=== PATIENT | female | born 1995 | race Caucasian/White ===

== ENCOUNTER 2018-01-02 03:28 | Emergency (ER) | payer OTHER ==
[2018-01-02] MEDS ORDERED: ONDANSETRON 4 MG (ODT) TAB ONE (03:54)
[2018-01-02] MEDS ORDERED: FAMOTIDINE 20 MG TAB ONE (03:55)
[2018-01-02 04:05] LABS: Urine Blood NEGATIVE (NEG); Urine Glucose NEGATIVE (NEG); Urine Protein NEGATIVE (NEG); Urine Specific Gravity 1.025 (1.005-1.030); Urine pH 5.5 (5.0-7.0)
--- NOTE | 2018-01-02 04:10 | EDPHYS ---
Physician Documentation [facility] Name: Lanny Salgado Age: 22 yrs Sex: Female : 1995 Arrival Date: 01/02/2018 Time: 03:29 Bed 13 Private MD: ED Physician Waylon Gold HPI: 01/02 03:58 This 22 yrs old Female presents to ER via Ambulatory with complaints of gs Abdominal Pain. 03:58 The patient presents with abdominal pain in the upper abdomen. Onset: The gs symptoms/episode began/occurred 2 day(s) ago, and became persistent. The symptoms do not radiate. Associated signs and symptoms: Pertinent positives: nausea, Pertinent negatives: chest pain, diarrhea, dysuria, vomiting. The symptoms are described as crampy. Modifying factors: The symptoms are alleviated by nothing, the symptoms are aggravated by nothing. Severity of pain: At its worst the pain was moderate in the emergency department the pain is unchanged. The patient has experienced similar episodes in the past, a few times. The patient has not recently seen a physician. 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 - Social history:: Smoking status: Patient uses tobacco products, smokes one-half pack cigarettes per day. - Ebola Screening: : No symptoms or risks identified at this time. ROS: 03:58 All other systems are negative. gs Exam: 03:58 Head/Face: Normocephalic, atraumatic. Eyes: Pupils equal round and reactive to light, gs extra-ocular motions intact. Lids and lashes normal. Conjunctiva and sclera are non-icteric and not injected. Cornea within normal limits. Periorbital areas with no swelling, redness, or edema. ENT: Nares patent. No nasal discharge, no septal abnormalities noted. Tympanic membranes are normal and external auditory canals are clear. Oropharynx with no redness, swelling, or masses, exudates, or evidence of obstruction, uvula midline. Mucous membranes moist. Neck: Trachea midline, no thyromegaly or masses palpated, and no cervical lymphadenopathy. Supple, full range of motion without nuchal rigidity, or vertebral point tenderness. No Meningismus. Chest/axilla: Normal chest wall appearance and motion. Nontender with no deformity. No lesions are appreciated. Cardiovascular: Regular rate and rhythm with a normal S1 and S2. No gallops, murmurs, or rubs. Normal PMI, no JVD. No pulse deficits. Respiratory: Lungs have equal breath sounds bilaterally, clear to auscultation and percussion. No rales, rhonchi or wheezes noted. No increased work of breathing, no retractions or nasal flaring. Back: No spinal tenderness. No costovertebral tenderness. Full range of motion. Skin: Warm, dry with normal turgor. Normal color with no rashes, no lesions, and no evidence of cellulitis. MS/ Extremity: Pulses equal, no cyanosis. Neurovascular intact. Full, normal range of motion. Neuro: Awake and alert, GCS 15, oriented to person, place, time, and situation. Cranial nerves II-XII grossly intact. Motor strength 5/5 in all extremities. Sensory grossly intact. Cerebellar exam normal. Normal gait. 03:58 Constitutional: The patient appears alert, awake. 03:58 Abdomen/GI: Palpation: mild abdominal tenderness, in the epigastric area, right upper quadrant and left upper quadrant, rebound tenderness, is not appreciated. Vital Signs: 03:37 BP 130 / 98; Pulse 73; Resp 18; Temp 98.1(O); Pulse Ox 98% on R/A; Weight 61.23 kg (R); ak1 Height 5 ft. 2 in. (157.48 cm) (R); Pain 8/10; 04:18 BP 117 / 95; Pulse 72; Resp 16; Temp 97.7(O); Pulse Ox 99% on R/A; Pain 3/10; bs1 03:37 Body Mass Index 24.69 (61.23 kg, 157.48 cm) ak1 MDM: 03:46 Patient medically screened. gs 03:58 Differential diagnosis: gastritis, non-specific abd pain, urinary tract infection. Data gs reviewed: vital signs, nurses notes. Response to treatment: the patient's symptoms have markedly improved after treatment, and as a result, I will discharge patient. 04:08 ED course: pt's exam is nonsurgical, is not vomiting is on her phone can distract to gs nontender exam will discharge. 01/02 03:47 Order name: Urine Microscopic Only 01/02 03:50 Order name: Urine Dipstick--Ancillary (enter results); Complete Time: 04:08 ny 01/02 03:47 Order name: Urine Test (obtain specimen); Complete Time: 03:51 01/02 03:50 Order name: Urine --Ancillary (enter results); Complete Time: 04:08 ny 01/02 03:47 Order name: Urine Dipstick-Ancillary (obtain specimen); Complete Time: 03:51 Administered Medications: 03:53 Drug: Pepcid 20 mg Route: PO; bs1 03:59 Follow up: Response: No adverse reaction bs1 03:54 Drug: Zofran 4 mg Route: PO; bs1 03:59 Follow up: Response: No adverse reaction bs1 Disposition: 01/02/18 04:09 Discharged to Home. Impression: Pain localized to upper abdomen. - Condition is Stable. - Discharge Instructions: Abdominal Pain, Adult. - Prescriptions for Pepcid 20 mg Oral Tablet - take 1 tablet by ORAL route every 12 hours for 10 days; 20 tablet. Zofran 4 mg Oral Tablet - take 1 tablet by ORAL route every 12 hours As needed; 6 tablet. - Medication Reconciliation Form, Thank You Letter, Antibiotic Education, Prescription Opioid Use form. - Follow up: Private Physician; When: 2 - 3 days; Reason: Re-evaluation by your physician. Signatures: Dispatcher [employer] EDMN Lilly Rogel RN RN ak1 Waylon Gold MD MD Rachel Davis RN RN bs1 Corrections: (The following items were deleted from the chart) 04:19 04:09 01/02/2018 04:09 Discharged to Home. Impression: Pain localized to upper abdomen. bs1 Condition is Stable. Forms are Medication Reconciliation Form, Thank You Letter, Antibiotic Education, Prescription Opioid Use. Follow up: Private Physician; When: 2 - 3 days; Reason: Re-evaluation by your physician.
--- NOTE | 2018-01-02 04:10 | ER ---
Nurse's Notes [facility] Name: Lanny Salgado Age: 22 yrs Sex: Female : 1995 Arrival Date: 01/02/2018 Time: 03:29 Bed 13 Private MD: Diagnosis: Pain localized to upper abdomen Presentation: 01/02 03:38 Presenting complaint: Patient states: upper abd pain X2 days. pt c/o nausea. Transition ak1 of care: patient was not received from another setting of care. Onset of symptoms was December 31, 2017. Risk Assessment: Do you want to hurt yourself or someone else? Patient reports no desire to harm self or others. Initial Sepsis Screen: Does the patient meet any 2 criteria? No. Patient's initial sepsis screen is negative. Does the patient have a suspected source of infection? No. Patient's initial sepsis screen is negative. Care prior to arrival: None. 03:38 Method Of Arrival: Ambulatory ak1 03:38 Acuity: LO 3 ak1 Triage Assessment: 03:40 General: Appears in no apparent distress. Behavior is calm, appropriate for age. 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 - Social history:: Smoking status: Patient uses tobacco products, smokes one-half pack cigarettes per day. - Ebola Screening: : No symptoms or risks identified at this time. Screenin:40 Abuse screen: Denies threats or abuse. Denies injuries from another. Nutritional ak1 screening: No deficits noted. Tuberculosis screening: No symptoms or risk factors identified. Fall Risk None identified. Assessment: 03:42 General: Appears in no apparent distress. uncomfortable, Behavior is calm, cooperative, bs1 appropriate for age. Pain: Complains of pain in right/left upper abdomen. Neuro: Level of Consciousness is awake, alert, obeys commands. Cardiovascular: Denies chest pain, shortness of breath, Heart tones S1 S2 present Capillary refill < 3 seconds Patient's skin is warm and dry. Respiratory: Airway is patent Trachea midline Breath sounds are clear bilaterally. GI: Abdomen is round non-distended, Bowel sounds present X 4 quads. Abdomen is tender to palpation in right upper quadrant and left upper quadrant. : Denies burning with urination. EENT: No signs and/or symptoms were reported regarding the EENT system. Derm: Skin is intact, Skin is pink, warm \T\ dry. normal. Musculoskeletal: Circulation, motion, and sensation intact. Capillary refill < 3 seconds, Range of motion: intact in all extremities. 04:19 Reassessment: Patient appears in no apparent distress at this time. Patient and/or bs1 family updated on plan of care and expected duration. Pain level reassessed. Patient is alert, oriented x 3, equal unlabored respirations, skin warm/dry/pink. patient states understanding of dc instructions. Vital Signs: 03:37 BP 130 / 98; Pulse 73; Resp 18; Temp 98.1(O); Pulse Ox 98% on R/A; Weight 61.23 kg (R); ak1 Height 5 ft. 2 in. (157.48 cm) (R); Pain 8/10; 04:18 BP 117 / 95; Pulse 72; Resp 16; Temp 97.7(O); Pulse Ox 99% on R/A; Pain 3/10; bs1 03:37 Body Mass Index 24.69 (61.23 kg, 157.48 cm) ak1 ED Course: 03:29 Patient arrived in ED. es 03:37 Arm band placed on Patient placed in an exam room, on a stretcher, Patient notified of ak1 wait time. 03:38 Rachel Davis RN is Primary Nurse. bs1 03:39 Triage completed. ak1 03:40 Patient has correct armband on for positive identification. Bed in low position. Call ak1 light in reach. Side rails up X 1. 03:41 Waylon Gold MD is Attending Physician. gs 04:18 No provider procedures requiring assistance completed. Patient did not have IV access bs1 during this emergency room visit. Administered Medications: 03:53 Drug: Pepcid 20 mg Route: PO; bs1 03:59 Follow up: Response: No adverse reaction bs1 03:54 Drug: Zofran 4 mg Route: PO; bs1 03:59 Follow up: Response: No adverse reaction bs1 Outcome: 04:09 Discharge ordered by . 04:18 Discharged to home ambulatory, with significant other. bs1 04:18 Condition: stable 04:18 Discharge instructions given to patient, Instructed on discharge instructions, follow up and referral plans. medication usage, Demonstrated understanding of instructions, follow-up care, medications, Prescriptions given X 2. 04:19 Patient left the ED. bs1 Signatures: Tamar Dhillon Amber RN RN ak1 Waylon Gold MD MD Rachel Davis RN RN bs1
[2018-01-02 04:25] LABS: Urine Bacteria <20 /HPF (<20); Urine Culture Reflex Order NOT NEEDED; Urine Mucus LIGHT /HPF (NONE SEEN); Urine RBC NONE SEEN /HPF (NONE SEEN)
== END 2018-01-02 04:19 | disposition home or self-care (01) ==
LOC: ER 03:28
DX: R10.10 Upper abdominal pain, unspecified (principal); F17.210 Nicotine dependence, cigarettes, uncomplicated
CPT/HCPCS: 81003; 81015; 81025; 99283

== ENCOUNTER 2020-03-11 10:24 | Emergency (ER) | payer OTHER ==
--- NOTE | 2020-03-11 10:39 | ER ---
Nurse's Notes [facility] Name: Lanny Salgado Age: 24 yrs Sex: Female : 1995 Arrival Date: 03/11/2020 Time: 10:26 Bed Waiting Private MD: Diagnosis: Assessment: 03/11 10:37 Reassessment: Attempted to call patient back form [facility]. Pt left from [facility] 5 minutes ss ago as reported by registration staff because her pain improved and no longer wanted to be seen. ED Course: 10:26 Patient arrived in ED. ds1 10:31 Abisai Dale PA is PHCP. mickey 10:31 Kaden Soares MD is Attending Physician. [facility] 10:38 Patient did not have IV access during this emergency room visit. ss Administered Medications: No medications were administered Outcome: 10:38 Eloped from waiting room, before seeing physician ss 10:39 Patient left the ED. ss Signatures: Abisai Dale PA PA jmm Sanford, Demi ds1 Dulec Padilla, JASIEL RN ss
== END 2020-03-11 10:39 | disposition left against medical advice (07) ==
LOC: ER 10:24
DX: Z02.9 Encounter for administrative examinations, unspecified (principal)

== ENCOUNTER 2022-05-29 00:54 | Emergency (ER) | payer BC, OTHER ==
--- OUTSIDE RECORDS SUMMARY | 2022-05-29 00:57 | XMS REPORT | Continuity of Care Document ---
:1995 Author Organization [facility] t Address [address] [place] [address] Care Team Providers Name Role Phone PCP, PATIENT DOES NOT HAVE A Primary Care Physician FAYE Bragg Attending Clinician Unavailable Apple Guthrie MD Attending Clinician APPLE GUTHRIE Attending Clinician Unavailable Doctor Unassigned, Brent Attending Clinician Unavailable Payers Payer Name Policy Type Policy Number Effective Date Expiration Date [id number] 2019 00:00:00 Problems Condition Condition Condition Status Onset Resolution Last Treating Co mments Source Name Details Category Date Date Treatment Clinician Date Molluscum Molluscum Disease Active Uni vers contagiosu contagiosu 4-08 it y of m m 00:00: [address] Breast Breast Disease Active Univers lesion lesion 4-08 ity of 00:00: [address] Allergies, Adverse Reactions, Alerts Allergy Allergy Status Severity Reaction(s) Onset Inactive Treating Comm ents Source Name Type Date Date Clinician NO KNOWN Drug Active Univers ALLERGIE Class ity of S [facility] Social History Social Habit Start Date Stop Date Quantity Comments Source Exposure to 2021-08-18 2021-09-17 Not sure [facility] SARS-CoV-2 00:00:00 15:40:00 [facility] Leopold Tobacco use and 2021-09-17 2021-09-17 Never used Universit y of exposure 00:00:00 00:00:[address] [facility] Alcohol intake 2021-09-17 2021-09-17 Lifetime University of 00:00:00 00:00:00 non-drinker [facility] (finding) Branch Sex Assigned At [birth year] Universit y of 00:00:00 00:00:[address] [facility] Smoking Status Start Date Stop Date Source Never smoker [facility] Medications Ordered Filled Start Stop Current Ordering Indication Dosage Frequency Signature Comments Components Source Medication Medication Date Date Medication? Clinician (SIG) Name Name podofilox 2021-0 Yes [id number] Apply to Univers 0.5 % 4-15 area(s) 2 ity of solution 00:00: (two) [place] 00 times Medical daily. Branch podofilox 2-0 Yes [id number] Apply to Univers 0.5 % 4-15 area(s) 2 ity of solution 00:00: (two) [place] 00 times Medical daily. Branch podofilox 2-0 Yes [id number] Apply to Univers 0.5 % gel 4-08 area(s) 2 ity o f 00:00: (two) [place] 00 times Medical daily. Use Branch twice daily until it goes away. podofilox 2-0 Yes [id number] Apply to Univers 0.5 % gel 4-08 area(s) 2 ity o f 00:00: (two) [place] 00 times Medical daily. Use Branch twice daily until it goes away. podofilox 2-0 Yes [id number] Apply to Univers 0.5 % gel 4-08 area(s) 2 ity o f 00:00: (two) [place] 00 times Medical daily. Use Branch twice daily until it goes away. Immunizations Ordered Filled Immunization Date Status Comments [facility] e Immunization Name Name Td 2018-09-04 Completed [facility] 00:00:[address] [facility] Td 2018-09-04 Completed [facility] :00:[address] [facility] Td 2018-09-04 Completed [facility] 00:00:[address] [facility] Vital Signs Vital Name Observation Time Observation Value Comments Source Systolic blood 2021-09-17 20:59:00 118 mm[Hg] Univer sity of [facility] Diastolic blood 2021-09-17 20:59:00 80 mm[Hg] Unive rsity of pressure [facility] Heart rate 2021-09-17 20:59:00 80 /min Universi ty [facility] Body temperature 2021-09-17 20:59:00 36.83 Latrice [facility] Respiratory rate 2021-09-17 20:59:00 18 /min [facility] Body height 2021-09-17 20:59:00 160 cm [facility] Body weight 2021-09-17 20:59:00 69.763 kg [facility] BMI 2021-09-17 20:59:00 27.24 kg/m2 [facility] Procedures This patient has no known procedures. Encounters Start End Encounter Admission Attending Care Care Encounter Source Date/Time Date/Time Type Type Clinicians Facility Department ID 2022-03-31 2022-03-31 Outpatient R MARKIE [facility] [id number] Univers 11:00:00 11:00:00 FAYE chaz [facility] 2021-10-05 2021-10-05 Telephone DevinDanin [facility] [id number] Univers 00:00:00 00:00:00 AISHWARYATON [id number] i [id number] [id number] Ut dical NAL [address] [place] [address] 2021-09-23 2021-09-23 Telephone DevinDanin [facility] [id number] Univers 00:00:00 00:00:00 MARIALUISA [id number] it [id number] [id number] [address] 2021-09-17 2021-09-17 Outpatient R APPLE GUTHRIE [facility] [id number] Univers 15:30:00 16:49:54 ity [facility] 2021-09-17 2021-09-17 Office DevinDanin [facility] [id number] Univers 15:30:00 16:49:54 Visit KATIE [id number] i ty [facility] [id number] [id number] Ut dical NAL [address] [place] [address] 2021-09-17 2021-09-17 Outpatient R APPLE GUTHRIE [facility] [id number] Univers 15:30:00 16:49:[address] [facility] 2021-09-17 2021-09-17 Orders Doctor JAVIER [id number] Univers 00:00:00 00:00:00 Only Unassigned, CARMITA [id number] ity of Brent [facility] [id number] Guillaume as [phone] [place] [address] Branch Results This patient has no known results.
[2022-05-29] MEDS ORDERED: NA CHLORIDE 0.9% 1,000 ML ONE (01:24)
[2022-05-29 01:57] LABS: Absolute Lymphocytes (CBC) 2.8 K/uL (0.7-4.9); Hematocrit 39.5 % (36.0-45.0); Lymphocytes % 32.9 % (15.3-44.8); MCV 85.8 fL (80-100); MPV 9.2 fL (7.6-11.3)
[2022-05-29] MEDS ORDERED: ONDANSETRON 4 MG/2 ML VIAL ONE (02:25)
[2022-05-29 02:27] LABS: Potassium 3.8 mmol/L (3.5-5.1)
--- NOTE | 2022-05-29 02:53 | EDPHYS ---
Physician Documentation [facility] Name: Lanny Salgado Age: 26 yrs Sex: Female : 1995 Arrival Date: 05/29/2022 Time: 01:05 Bed 6 Private MD: PARAG Physician Eusebio Cancino HPI: 05/29 01:59 This 26 yrs old Female presents to ER via Ambulatory with complaints of funmilayo Vaginal Bleeding, + Preg <12wks. 01:59 The patient presents to the emergency department with vaginal bleeding, that is funmilayo moderate. The estimated gestational age is 8 weeks. course: care: at a clinic. Previous pregnancies: the patient has never been . Associated signs and symptoms: The patient has no apparent associated signs or symptoms. The patient has not experienced similar symptoms in the past. 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 - Social history:: Smoking status: Patient denies any tobacco usage or history of. ROS: 02:01 Constitutional: Negative for fever, chills, and weight loss, Eyes: Negative for injury, funmilayo pain, redness, and discharge, ENT: Negative for injury, pain, and discharge, Neck: Negative for injury, pain, and swelling, Cardiovascular: Negative for chest pain, palpitations, and edema, Respiratory: Negative for shortness of breath, cough, wheezing, and pleuritic chest pain, Abdomen/GI: Negative for abdominal pain, nausea, vomiting, diarrhea, and constipation, Back: Negative for injury and pain, MS/Extremity: Negative for injury and deformity, Skin: Negative for injury, rash, and discoloration, Neuro: Negative for headache, weakness, numbness, tingling, and seizure, Psych: Negative for depression, anxiety, suicide ideation, homicidal ideation, and hallucinations, Allergy/Immunology: Negative for hives, rash, and allergies, Endocrine: Negative for neck swelling, polydipsia, polyuria, polyphagia, and marked weight changes. 02:01 : Positive for pelvic pain. Exam: 02:01 Constitutional: This is a well developed, well nourished patient who is awake, alert, funmilayo and in no acute distress. Head/Face: Normocephalic, atraumatic. Eyes: Pupils equal round and reactive to light, extra-ocular motions intact. Lids and lashes normal. Conjunctiva and sclera are non-icteric and not injected. Cornea within normal limits. Periorbital areas with no swelling, redness, or edema. ENT: Nares patent. No nasal discharge, no septal abnormalities noted. Tympanic membranes are normal and external auditory canals are clear. Oropharynx with no redness, swelling, or masses, exudates, or evidence of obstruction, uvula midline. Mucous membranes moist. Neck: Trachea midline, no thyromegaly or masses palpated, and no cervical lymphadenopathy. Supple, full range of motion without nuchal rigidity, or vertebral point tenderness. No Meningismus. Chest/axilla: Normal chest wall appearance and motion. Nontender with no deformity. No lesions are appreciated. Cardiovascular: Regular rate and rhythm with a normal S1 and S2. No gallops, murmurs, or rubs. Normal PMI, no JVD. No pulse deficits. Respiratory: Lungs have equal breath sounds bilaterally, clear to auscultation and percussion. No rales, rhonchi or wheezes noted. No increased work of breathing, no retractions or nasal flaring. Abdomen/GI: Soft, non-tender, with normal bowel sounds. No distension or tympany. No guarding or rebound. No evidence of tenderness throughout. Back: No spinal tenderness. No costovertebral tenderness. Full range of motion. Skin: Warm, dry with normal turgor. Normal color with no rashes, no lesions, and no evidence of cellulitis. MS/ Extremity: Pulses equal, no cyanosis. Neurovascular intact. Full, normal range of motion. Neuro: Awake and alert, GCS 15, oriented to person, place, time, and situation. Cranial nerves II-XII grossly intact. Motor strength 5/5 in all extremities. Sensory grossly intact. Cerebellar exam normal. Normal gait. Psych: Awake, alert, with orientation to person, place and time. Behavior, mood, and affect are within normal limits. 02:01 Musculoskeletal/extremity: DVT Exam: No signs of deep vein thrombosis. no pain, no swelling, no tenderness, negative Homans' sign noted on exam, no appreciated bluish discoloration, no erythema, no increased warmth. Vital Signs: 01:34 Weight 66.22 kg; Height 5 ft. 2 in. (157.48 cm); vc1 02:15 BP 106 / 80; Pulse 78; Resp 20 S; Pulse Ox 100% on R/A; aa9 03:01 BP 117 / 70; Pulse 87; Resp 19 S; Pulse Ox 99% on R/A; ll3 01:34 Body Mass Index 26.70 (66.22 kg, 157.48 cm) vc1 MDM: 01:07 Patient medically screened. funmilayo 01:13 Patient medically screened. funmilayo 02:52 Differential diagnosis: menorrhea, threatened Ab, nonspecific abdominal pain, ovarian funmilayo cyst, placenta previa, postcoital bleeding. Data reviewed: vital signs, nurses notes, lab test result(s), radiologic studies, ultrasound. 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 rate is 78 beats/min, rhythm is regular, Pulse oximetry: on room air is 100 %. Counseling: I had a detailed discussion with the patient and/or guardian regarding: the historical points, exam findings, and any diagnostic results supporting the discharge/admit diagnosis, lab results, radiology results, the need for outpatient follow up, for definitive care, an OB/Gyne specialist. 05/29 01:08 Order name: Abo/rh Typing; Complete Time: 02:[address] [facility] 05/29 01:08 Order name: Basic Metabolic Panel; Complete Time: 02:[address] [facility] 05/29 01:08 Order name: CBC with Diff; Complete Time: 02:[address] [facility] 05/29 01:08 Order name: Quantitative Hcg; Complete Time: 02:[address] [facility] 05/29 02:59 Order name: Urine Dipstick-Ancillary EDMS 05/29 01:08 Order name: US Transvaginal Ob [facility] 05/29 01:08 Order name: IV Saline Lock; Complete Time: 01:[address] [facility] 05/29 01:08 Order name: Labs collected and sent; Complete Time: 01:[address] [facility] 05/29 01:08 Order name: NPO; Complete Time: 01:[address] [facility] 05/29 01:08 Order name: Urine Dipstick-Ancillary (obtain specimen); Complete Time: 03:[address] [facility] 05/29 03:02 Order name: Urine --Ancillary (enter results) 05/29 01:08 Order name: Urine Test (obtain specimen); Complete Time: 03:00 funmilayo Administered Medications: 01:38 Drug: NS 0.9% 1000 ml Route: IV; Rate: 1 bolus; Site: left antecubital; aa9 02:32 Drug: Zofran (Ondansetron) 4 mg Route: IVP; Site: left antecubital; aa9 Point of Care Testing: Urine : 03:00 hCG Reading: Positive; Control Reading: Positive; vc1 Disposition Summary: 05/29/22 02:53 Discharge Ordered Location: Home [facility] Problem: new funmilayo Symptoms: have improved funmilayo Condition: Stable funmilayo Diagnosis - Threatened funmilayo - Nausea funmilayo Followup: funmilayo - With: Private Physician - When: - Reason: Recheck today's complaints, Continuance of care, Re-evaluation by your physician Followup: funmilayo - With: - When: 2 - 3 days - Reason: Recheck today's complaints, Re-evaluation by your physician Discharge Instructions: - Discharge Summary Sheet funmilayo - Nausea and Vomiting, Adult funmilayo - Care funmilayo - Threatened Miscarriage funmilayo - Vaginal Bleeding During , First Trimester funmilayo - First Trimester of , [id number] funmilayo - First Trimester of funmilayo - Threatened Miscarriage, [id number] funmilayo - Vaginal Bleeding During , First Trimester, [id number] [facility] Forms: - Medication Reconciliation Form [facility] - Thank You Letter funmilayo - Antibiotic Education funmilayo - Prescription Opioid Use [facility] Prescriptions: - Zofran 4 mg Oral Tablet - take 1 tablet by ORAL route every 12 hours As needed; 20 tablet; Refills: 0, funmilayo Product Selection Permitted Signatures: Dispatcher [employer] EDMS Eusebio Cancino MD MD cha Calcote, Vanessa RN RN vc1 María Elena Fishman RN RN aa9 Corrections: (The following items were deleted from the chart) 03:03 03:01 URIC ACID+C.LAB.BRZ ordered. EDMS EDMS
--- NOTE | 2022-05-29 02:53 | ER ---
Nurse's Notes [facility] Name: Lanny Salgado Age: 26 yrs Sex: Female : 1995 Arrival Date: 05/29/2022 Time: 01:05 Bed 6 Private MD: Diagnosis: Threatened ;Nausea Presentation: 05/29 01:34 Chief complaint: Patient states: "I'm 8 wks and I woke up bleeding.". vc1 Coronavirus screen: Vaccine status: Patient reports being unvaccinated. Ebola Screen: No symptoms or risks identified at this time. Risk Assessment: Do you want to hurt yourself or someone else? Patient reports no desire to harm self or others. Onset of symptoms was May 29, 2022 at 00:30. 01:34 Method Of Arrival: Ambulatory vc1 01:34 Acuity: LO 4 vc1 01:39 Initial Sepsis Screen: Does the patient meet any 2 criteria? No. Patient's initial vc1 sepsis screen is negative. Does the patient have a suspected source of infection? No. Patient's initial sepsis screen is negative. Triage Assessment: 01:36 General: Appears in no apparent distress. Behavior is calm, cooperative, appropriate vc1 for age. Pain: Denies pain. EENT: No deficits noted. Neuro: Level of Consciousness is awake, alert, obeys commands, Oriented to person, place, time, situation, Appropriate for age. Cardiovascular: Capillary refill < 3 seconds Patient's skin is warm and dry. Respiratory: Airway is patent Respiratory effort is even, unlabored, Respiratory pattern is regular, symmetrical. GI: No deficits noted. No signs and/or symptoms were reported involving the gastrointestinal system. : Reports vaginal bleeding that is heavy flow dark red. Derm: No deficits noted. Musculoskeletal: No deficits noted. 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 - Social history:: Smoking status: Patient denies any tobacco usage or history of. Screenin:37 Abuse screen: Denies threats or abuse. Nutritional screening: No deficits noted. vc1 Tuberculosis screening: No symptoms or risk factors identified. Fall Risk No fall in past 12 months (0 pts). 03:08 [facility] ED Fall Risk Assessment (Adult) History of falling in the last 3 months, aa9 including since admission No falls in past 3 months (0 pts) Confusion or Disorientation No (0 pts) Intoxicated or Sedated No (0 pts) Impaired Gait No (0 pts) Mobility Assist Device Used No (0 pt) Altered Elimination No (0 pt) Score/Fall Risk Level 0 - 2 = Low Risk. Humpty Dumpty Scale Fall Assessment Tool (age< 18yrs) Age 13 years and above (1 pt) Gender Female (1 pt) Diagnosis Other diagnosis (1 pt) Cognitive Impairments Oriented to own ability (1 pt) Environmental Factors Outpatient area (1 pt) Response to Surgery/Sedation/Anesthesia More than 48 hours/ None (1 pt) Medication Usage Other medications/ None (1 pt) Fall Risk Score/ Level Low Fall Risk: </= 11 points Oriented to surroundings. Assessment: 01:39 Obstetrical Assessment: pt early in . vc1 02:02 General: Appears in no apparent distress. comfortable, slender, Behavior is aa9 cooperative, appropriate for age, anxious. Pain: Complains of pain in low back area and abdomen Pain currently is 4 out of 10 on a pain scale. Quality of pain is described as crampy. Neuro: Level of Consciousness is awake, alert, obeys commands, Oriented to person, place, time, situation. Cardiovascular: Capillary refill < 3 seconds Patient's skin is warm and dry. Respiratory: Airway is patent Respiratory effort is even, unlabored. GI: No signs and/or symptoms were reported involving the gastrointestinal system. : Reports vaginal bleeding that is bright red. Derm: Skin is intact, is healthy with good turgor. 03:01 Reassessment: Patient appears in no apparent distress at this time. Patient is alert, ll3 oriented x 3, equal unlabored respirations, skin warm/dry/pink. Vital Signs: 01:34 Weight 66.22 kg; Height 5 ft. 2 in. (157.48 cm); vc1 02:15 BP 106 / 80; Pulse 78; Resp 20 S; Pulse Ox 100% on R/A; aa9 03:01 BP 117 / 70; Pulse 87; Resp 19 S; Pulse Ox 99% on R/A; ll3 01:34 Body Mass Index 26.70 (66.22 kg, 157.48 cm) vc1 Vitals: 01:38 Heart Tones Too early in . vc1 ED Course: 01:05 Patient arrived in ED. ja2 01:07 Eusebio Cancino MD is Attending Physician. funmilayo 01:23 María Elena Fishman, JASIEL is Primary Nurse. aa9 01:35 Triage completed. vc1 01:36 Inserted saline lock: 20 gauge in left antecubital area, using aseptic technique. Blood aa9 collected. 01:38 Abo/rh Typing Sent. aa9 01:38 Basic Metabolic Panel Sent. aa9 01:38 CBC with Diff Sent. aa9 01:38 Quantitative Hcg Sent. aa9 02:01 Arm band placed on. aa9 02:02 No provider procedures requiring assistance completed. aa9 02:02 Patient has correct armband on for positive identification. Bed in low position. Call aa9 light in reach. Side rails up X2. Adult w/ patient. 02:25 US Transvaginal Ob In Process Unspecified. EDMS 02:53 Anupam Posadas MD is Referral Physician[facility] 03:08 IV discontinued, intact, bleeding controlled, No redness/swelling at site. Pressure aa9 dressing applied. Administered Medications: 01:38 Drug: NS 0.9% 1000 ml Route: IV; Rate: 1 bolus; Site: left antecubital; aa9 02:32 Drug: Zofran (Ondansetron) 4 mg Route: IVP; Site: left antecubital; aa9 Medication: 02:04 VIS not applicable for this client. aa9 Point of Care Testing: Urine : 03:00 hCG Reading: Positive; Control Reading: Positive; vc1 Outcome: 02:53 [facility]charge [facility] by [facility] 03:08 Discharged to home ambulatory, with family. aa9 03:08 Condition: stable 03:08 Discharge instructions given to patient, Instructed on discharge instructions, follow up and referral plans. medication usage, Demonstrated understanding of instructions, follow-up care, medications, Prescriptions given X 1. 03:08 Patient left the ED. aa9 Signatures: Dispatcher [employer] EDEusebio Garza MD MD cha Alexander, Jessica ja2 Loubet, Lynsea RN RN ll3 Madai Fermin RN RN vc1 María Elena Fishman RN RN aa9
[2022-05-29 02:59] LABS: Urine Blood Trace-intact (Negative); Urine Glucose Negative (Negative); Urine Protein Negative (Negative); Urine Specific Gravity 1.015 (1.005-1.030); Urine pH 6.5 (5.0-7.0)
[2022-05-29 03:14] LABS: Urine Specific Gravity/Preg 1.015 (1.005-1.030)
[2022-05-29 03:27] VITALS: BP 117/70; O2SAT 99
--- NOTE | 2022-05-30 12:01 | RAD REPORT ---
EXAM DESCRIPTION: US - Transvaginal OB - 05/29/2022 2:24 am CLINICAL HISTORY: ABD CRAMPING, TECHNIQUE: Real-time transabdominal and transvaginal obstetrical ultrasound of the maternal pelvis a nd a first trimester with image documentation. Transvaginal imaging was used for better e valuation of the fetus and adnexa. COMPARISON: No relevant prior studies available. FINDINGS: Gestation: Single intrauterine gestational sac. Mean sac diameter measures 18 mm corre sponding to an estimated gestational age of 6 weeks 5 days. The crown-rump length measures 5.3 mm c orresponding to an estimated gestational age of 7 weeks 0 days. There is a small yolk sac. cardiac activity measures 125 BPM. Placenta/amniotic fluid: Cannot be adequately evaluated due to the early gestational age. Uterus/cervix: The uterus is anteverted and measures 8.9 x 5 x 5.8 cm. No myometrial mass. Ovaries: Right and left ovarian measurements are 3.5 x 2.1 x 2.1 cm and 2.7 x 2.2 x 1.7 cm, respect ively. No mass. Free fluid: No free fluid. IMPRESSION: 1. Single live intrauterine gestation. 2. Estimated gestational age by ultrasound is 7 weeks 0 days. 3. Estimated due date by ultrasound is 01/15/2023. Electronically signed by: Nick Blankenship MD 05/29/2022 2:43 AM DIRECTOR OF HOUSING AND ENERGY SERVICES Due to temporary technical issues with the PACS/Fluency reporting system, reports are being signed by the in house radiologists without review as a courtesy to insure prompt reporting. The interpreting radiologist is fully responsible for the content of the report.
== END 2022-05-29 03:08 | disposition home or self-care (01) ==
LOC: ER 00:54
DX: O20.0 Threatened abortion (principal); O26.891 Other specified pregnancy related conditions, first trimester; Z3A.01 Less than 8 weeks gestation of pregnancy
CPT/HCPCS: 85025; 80048; 36415; 86900; 81025; 86901; 84702; 81003; 76817; 96374; 99284; J7030; J2405

== ENCOUNTER 2022-11-02 13:37 | Emergency (ER) | payer OTHER ==
--- OUTSIDE RECORDS SUMMARY | 2022-11-02 13:42 | XMS REPORT | Continuity of Care Document ---
:1995 Author Organization [facility] t Address [address] [facility]. [address] [place] [address] Care Team Providers Name Role Phone PCP, PATIENT DOES NOT HAVE A Primary Care Physician Unavaila FAYE Reed Attending Clinician Unavailable COREY MG Attending Clinician Unavailable Corey Mg MD Attending Clinician 2, Adc Lab Attending Clinician Unavailable Denis Pace Attending Clinician Unavailable Gm Guthrie MD Attending Clinician GM GUTHRIE Attending Clinician Unavailable Doctor Unassigned, [place] Attending Clinician Unavailable Denis Pace Admitting Clinician Unavailable Payers Payer Name Policy Type Policy Number Effective Date Expiration Date S ource [facility] [id number] 2019 00:00:00 [place] [employer] [id number] 2022 00:00:00 Problems Condition Condition Condition Status Onset Resolution Last Treating Co mments Source Name Details Category Date Date Treatment Clinician Date Obesity Obesity Disease Active Univers (BMI (BMI - ity of 30-39.9) 30-39.9) 00:00: [address] Obesity in Obesity in Disease Active U nivers 10-10 ity of 00:00: [address] Uterine Uterine Disease Active Univers size-date size-date 10-10 [place]y [place] Medical second second Branch trimester trimester High-risk High-risk Disease Active Uni vers 5-01 ity of in third in third 00:00: [place] trimester trimester 00 Medi sanaz Branch Molluscum Molluscum Disease Active Uni vers contagiosu contagiosu 4-08 it y of m m 00:00: [address] Breast Breast Disease Active Univers lesion lesion 08 ity of 00:00: [address] Allergies, Adverse Reactions, Alerts Allergy Allergy Status Severity Reaction(s) Onset Inactive Treating Comm ents Source Name Type Date Date Clinician NO KNOWN Drug Active Univers ALLERGIE Class ity of S [facility] Social History Social Habit Start Date Stop Date Quantity Comments Source ASSERTION 2022-04-22 University 00:00:00 [facility] Exposure to 2022-10-17 2022-10-27 Not sure [facility] SARS-CoV-2 00:00:00 10:57:00 [facility] (event) [place] Alcohol intake 2022-10-27 2022-10-27 Lifetime University 00:00:00 00:00:00 non-drinker [facility] (finding) [place] Tobacco use and 2022-10-10 2022-10-10 Smokeless tobacco Un iversity of exposure 00:00:00 00:00:00 non-user [facility] Sex Ass[birth year] Universit y of 00:00:00 00:00:00 [facility] Smoking Status Start Date Stop Date Source Never smoked tobacco [facility] Medications Ordered Filled Start Stop Current Ordering Indication Dosage Frequency Signature Comments Components Source Medication Medication Date Date Medication? Clinician (SIG) Name Name PNV Yes Take by Univers no.95/samantha 5-01 mouth. ity of us 14:29: [place] fum/folic 33 Medical ac Branch ( ORAL) PNV Yes Take by Univers no.95/samantha 5-01 mouth. ity of us 14:29: [place] fum/folic 33 Medical ac Branch ( ORAL) PNV Yes Take by Univers no.95/samantha 5-01 mouth. ity of us 14:29: [place] fum/folic 33 Medical ac Branch ( ORAL) podofilox Yes [id number] Apply to Univers 0.5 % 4-15 area(s) 2 ity of solution 00:00: (two) [place] 00 times Medical daily. Branch podofilox 2-0 Yes [id number] Apply to Univers 0.5 % 4-15 area(s) 2 ity of solution 00:00: (two) [place] 00 times Medical daily. Branch podofilox 2-0 3- No [id number] Apply to Univers 0.5 % 4-15 05-01 area(s) 2 ity of solution 00:00: 00:00 (two) [place] 00 :00 times Medical daily. Branch podofilox 2-0 Yes [id number] Apply to Univers 0.5 % gel 4-08 area(s) 2 ity o f 00:00: (two) [place] 00 times Medical daily. Use Branch twice daily until it goes away. podofilox 2-0 Yes [id number] Apply to Univers 0.5 % gel 4-08 area(s) 2 ity o f 00:00: (two) [place] 00 times Medical daily. Use Branch twice daily until it goes away. podofilox 2-0 Yes [id number] Apply to Univers 0.5 % gel 4-08 area(s) 2 ity o f 00:00: (two) [place] 00 times Medical daily. Use Branch twice daily until it goes away. podofilox 2-0 3- No [id number] Apply to Univers 0.5 % gel 4-08 05-01 area(s) 2 ity of 00:00: 00:00 (two) [place] 00 :00 times Medical daily. Use Branch twice daily until it goes away. Immunizations Ordered Filled Immunization Date Status Comments [facility] e Immunization Name Name TDAP 2022-10-27 Completed University of 00:00:00 [facility] TD, NOS 2018-09-04 Completed University of 00:00:00 [facility] Td 2018-09-04 Completed University of 00:00:00 [facility] Td 2018-09-04 Completed University of 00:00:00 [facility] Td 2018-09-04 Completed University of 00:00:00 [facility] TD, NOS 2018-09-04 Completed of 00:00:00 [facility] TD, NOS 2018-09-04 Completed 00:00:00 [facility] Vital Signs Vital Name Observation Time Observation Value Comments Source Systolic blood 2022-10-27 16:04:00 111 mm[Hg] Univer sity of pressure [place] [facility] Diastolic blood 2022-10-27 16:04:00 76 mm[Hg] Unive rsity of pressure [place] [facility] Heart rate 2022-10-27 16:04:00 89 /min Universi ty [facility] [place] [facility] Body temperature 2022-10-27 16:04:00 37.06 Latrice Univ ersity of [place] [facility] Body height 2022-10-27 16:04:00 157.5 cm Universi ty [facility] [place] [facility] Body weight 2022-10-27 16:04:00 77.384 kg [facility] [place] [facility] BMI 2022-10-27 16:04:00 31.20 kg/m2 [facility] ty [facility] [place] [facility] Systolic blood 2022-10-10 19:23:00 112 mm[Hg] Univer sity of pressure [place] [facility] Diastolic blood 2022-10-10 19:23:00 79 mm[Hg] Unive rsity of pressure [place] [facility] Heart rate 2022-10-10 19:23:00 76 /min [facility] [place] [facility] Body temperature 2022-10-10 19:23:00 36.83 Latrice Univ ers[facility] [place] [facility] Body height 2022-10-10 19:23:00 157.5 cm [facility] [place] [facility] Body weight 2022-10-10 19:23:00 76.204 kg [facility] [place] [facility] BMI 2022-10-10 19:23:00 30.73 kg/m2 [facility] [place] [facility] Body weight 2021-09-17 20:59:00 69.763 kg [facility] [place] [facility] BMI 2021-09-17 20:59:00 27.24 kg/m2 [facility] [place] [facility] Systolic blood 2021-09-17 20:59:00 118 mm[Hg] Univer sity of pressure [place] [facility] Diastolic blood 2021-09-17 20:59:00 80 mm[Hg] Unive rsity of pressure [place] [facility] Heart rate 2021-09-17 20:59:00 80 /min [facility] [place] [facility] Body temperature 2021-09-17 20:59:00 36.83 Latrice Univ [facility] [place] [facility] Respiratory rate 2021-09-17 20:59:00 18 /min [facility] Body height 2021-09-17 20:59:00 160 cm [facility] Procedures Procedure Date / Time Performed Performing Clinician Sourcinthya e TDAP VACCINE, >11 YRS, 2022-10-27 16:05:21 Corey Mg [facility] POCT URINALYSIS W/O 2022-10-27 00:00:00 Corey Mg [facility] SPECIFIC GRAVITY [facility] POCT URINALYSIS W/O 2022-10-10 00:00:00 Corey Mg [facility] SPECIFIC GRAVITY [facility] Encounters Start End Encounter Admission Attending Care Care Encounter Source Date/Time Date/Time Type Type Clinicians Facility Department ID 2022-11-09 2022-11-09 Outpatient R MARKIE [facility] [id number] Univers 09:30:00 09:30:[facility] 2022-10-27 2022-10-27 Outpatient R COREY MG [facility] [id number] Univers 11:00:00 11:19:23 ity of [facility] 2022-10-27 2022-10-27 Routine Corey Mg [place] [id number] Univers 11:00:00 11:19:23 Fermín WILSON [id number] ity of [id number] [id number] Sd dical NAL 134 [facility] 2022-10-11 2022-10-11 Optometric Technician 2, Adc Lab RUST [id number] Univers 13:00:00 13:15:00 Visit Alfredo Coreypaul WILSON [id number] ity of [place] [id number] Sd dical NAL 353 [facility] 2022-10-11 2022-10-11 Outpatient R COREY MG [facility] [id number] Univers 13:00:00 13:00:[address] [facility] 2022-10-10 2022-10-10 Initial Corey Mg [place] [id number] Univers 14:00:00 14:30:00 Cam KATIE [id number] ity of [place] [id number] [address] 2022-10-10 2022-10-10 Outpatient R COREY MG [facility] [id number] Univers 14:00:00 14:00:00 ity of [facility] 2022-09-05 2022-09-05 Outpatient JULITO Pace [facility] [id number] [facility] 10:48:00 10:48:00 Beilan [facility] [place] 2022-07-25 2022-07-25 Outpatient Sanjeev [facility] [id number] [facility] 13:13:00 13:13:00 Beilan [facility] 2022-03-31 2022-03-31 Outpatient R MARKIE [facility] [id number] Univers 11:00:00 11:00:[address] [facility] 2021-10-05 2021-10-05 Telephone Gm Guthrie [place] [id number] Univers 00:00:00 00:00:00 KATIE [id number] i ty [place] [id number] [address] 2021-09-23 2021-09-23 Telephone Gm Guthrie [facility] [id number] Univers 00:00:00 00:00:00 MARIALUISA [id number] it y of [place] [id number] [address] 2021-09-17 2021-09-17 Outpatient R GM GUTHRIE [facility] [id number] Univers 15:30:00 16:49:[address] [facility] 2021-09-17 2021-09-17 Office Gm Guthrie [place] [id number] Univers 15:30:00 16:49:54 Visit KATIE 350.1.13.10 i ty of [place] [id number] Sd dical NAL 134 Branch BUILDING 2021-09-17 2021-09-17 Outpatient R GM GUTHRIE [facility] [id number] Univers 15:30:00 16:49:54 ity of [facility] 2021-09-17 2021-09-17 Orders Doctor JAVIER [id number] [id number] Univers 00:00:00 00:00:00 Only Unassigned, CARMITA [id number] ity of [place] [facility] 4.2.7.2.686 Guillaume as [id number] [address] Results Test Description Test Time Test Comments Results Result Comments Source POCT URINALYSIS W/O SPECIFIC GRAVITY 2022-10-27 16:02:00 Test Item Value Reference Range Interpretation Comme nts POCT PH U (test code = 3254) n/a 5-8 POCT U LEUK EST (test code = 3263) n/a Negative - Negative POCT U NIT (test code = 3262) n/a Negative - Negative POCT U PROT (test code = 3259) Negative Negative - Negative POCT U GLU (test code = 3256) Normal Negative - Negative POCT U KETONE (test code = 3258) n/a Negative - Negative POCT U BLD (test code = 3257) n/a Negative - Negative [facility] [id number] 19:21:00 Test Item Value Reference Range Interpretation Comments POCT PH U (test code = 3254) n/a 5-8 POCT U LEUK EST (test code = n/a Negative - Negative 3263) POCT U NIT (test code = 3262) n/a Negative - Negative POCT U PROT (test code = 3259) Negative Negative - Negative POCT U GLU (test code = 3256) Normal Negative - Negative POCT U KETONE (test code = 3258) n/a Negative - Negative POCT U BLD (test code = 3257) n/a Negative - Negative [facility]- PREG AFTER [id number] 13:51:00 [facility] 1995 Sex: F Patient Name: CHARAN BERNAL Unit No: [id number] EXAMS: CPT CODE: [id number] US PREG AFTER 1ST TRI 25361 Indication ======== anatomy survey History ====== OB History 1. Para 0 Method ====== Transabdominal ultrasound examination ========= [place] . Number of fetuses: 1 Dating ====== Date Details Gest. age EUGENE Stated EUGENE 21 w + 3 d 01/13/2023 U/S 09/05/2022 based upon AC, BPD, Femur, HC, Humerus 20 w + 5 d 01/18/2023 Assigned dating based on stated EUGENE, selected on 09/05/2022 21 w+ 3 d 01/13/2023 General Evaluation Cardiac activity present. FHR 147 bpm. Presentation: cephalic Placenta: Placental site: anterior, Grade 1, no previa Umbilical cord: Cord vessels: 3 ves mu cord. Insertion site: normal Amniotic fluid: Amount of AF: normal Biometry BPD 46.1 mm 19w 6d 5% Hadlock HC 177.1 mm 20w 1d 4% Hadlock AC 152.9 mm 20w 3d 16% Hadlock Femur 35.6 mm 21w 2d 34% Hadlock Humerus 34.1 [facility] NAME: CHARAN BERNAL Radiology Department PHYS: Denis Lang MD [address] : 1995 AGE: 26 SEX: F [place], [place] [address] LOC: [place] PHONE #: [phone] EXAM DATE: 09/05/2022 STATUS: REG CLI FAX #: [phone] RAD NO: Page 1 Signed Report (CONTINUED) Patient Name: CHARAN BERNAL Unit No: [id number] EXAMS: CPT CODE: [id number] US PREG AFTER 1ST TRI 68360 (Continued) mm 21w 4d 54% Nanette HC / AC 1.16 Weight Calculation: EFW 374 g 28% Frida EFW (lb,oz) 0 lb 13 oz EFW by Hadlock ([id number]) Head / Face / Neck Biometry: Cephalic index 72.07 Extremities / Bony Struc Biometry: FL / BPD 77.26 FL/ HC 20.09 FL / AC 23.28 Anatomy The following structures appear normal: Head / Neck Cranium. Lateral ventricles. Choroid plexus. Midline falx. Cavum septi pellucidi. Cerebellum. Cisterna magna. Face Lips. Profile. Nose. Nasal bone. Orbits. Heart / Thorax 4-chamber view. RVOT view. LVOT view. 3-vessel view. Abdomen Cord insertion. Stomach: left-sided. Kidneys. Bladder. Spine Cervical spine. Thoracic spine. Lumbar spine. Sacral spine. The following structures were visualized: Extremities / Skeleton Arms. Hands. Legs. Feet. Maternal Structures Cervix Visualized Cervical length 4.8 cm Right Ovary Visualized Size 3.1 cm x 1.8 cm x 1.6 cm. Vol 4.8 cm Left Ovary Visualized Size 2.9 cm x 1.5 cm x 1.2 cm. Vol 2.7 cm Impression ========= Growth and anatomy survey appears normal [facility] NAME: CHARAN BERNAL Radiology Department PHYS: Denis Lang MD [address] : 1995 AGE: 26 SEX: F [place], [place] [address] LOC: [place] PHONE #: [phone] EXAM DATE: 09/05/2022 STATUS: REG CLI FAX #: [phone] RAD NO: Page 2 Signed Report (CONTINUED) Patient Name: CHARAN BERNAL Unit No: [id number] EXAMS: CPT CODE: [id number] US PREG AFTER 1ST TRI 14982 (Continued) at 1351 Reported and signed by: Idalmis Ortez MD CC: Denis Pace MD Technologist: Theresa Redd, RDMS Probe: Trnscrbd D/ (1351) GCD.CPS Orig Print D/T: S: 09/05/2022 (1352) [facility] NAME: CHARAN BERNAL Radiology Department PHYS: Denis Lang MD [address] : 1995 AGE: 26 SEX: F [place] [address] LOC: [place] PHONE #: [phone] EXAM DATE: 09/05/2022 STATUS: REG CLI FAX #: [phone] RAD NO: Page 3 Signed Report Patient Name: CHARAN BERNAL Unit No: [id number] EXAMS: CPT CODE: [id number] US PREG AFTER 1ST TRI 90376 (Continued) [facility] NAME: CHARAN BERNAL Radiology Department PHYS: Denis Lang MD [address] : 1995 AGE: 26 SEX: F [place] [address] LOC: [place].RAD PHONE #: [phone] EXAM DATE: 09/05/2022 STATUS: REG CLI FAX #: [phone] RAD NO: Page 4 Signed Report
--- NOTE | 2022-11-02 14:01 | ER ---
Nurse's Notes [facility] Name: Lanny Salgado Age: 27 yrs Sex: Female : 1995 Arrival Date: 11/02/2022 Time: 13:37 Bed 11 Private MD: Diagnosis: related conditions, unspecified, third trimester Presentation: 11/02 13:45 Chief complaint: Patient states: almost 30 weeks and has been having lower abd iw cramping, had some bleeding 2 days ago after sex and also has not felt the baby move since last night. Coronavirus screen: At this time, the client does not indicate any symptoms associated with coronavirus-19. Ebola Screen: Patient negative for fever greater than or equal to 101.5 degrees Fahrenheit, and additional compatible Ebola Virus Disease symptoms Patient denies exposure to infectious person. Patient denies travel to an Ebola-affected area in the 21 days before illness onset. No symptoms or risks identified at this time. Initial Sepsis Screen: Does the patient meet any 2 criteria? No. Patient's initial sepsis screen is negative. Does the patient have a suspected source of infection? No. Patient's initial sepsis screen is negative. Risk Assessment: Do you want to hurt yourself or someone else? Patient reports no desire to harm self or others. Onset of symptoms was October 31, 2022. 13:45 Method Of Arrival: Ambulatory 13:45 Acuity: LO 3 iw REED MAN: 14:14 LMP N/A - mb9 Historical: - Allergies: 13:46 No Known Allergies; iw - Home Meds: 13:46 None [Active]; iw - PMHx: 13:46 None; iw - Immunization history:: Adult Immunizations up to date. - Social history:: Smoking status: . Screenin:14 [facility] ED Fall Risk Assessment (Adult) History of falling in the last 3 months, mb9 including since admission No falls in past 3 months (0 pts) Confusion or Disorientation No (0 pts) Intoxicated or Sedated No (0 pts) Impaired Gait No (0 pts) Mobility Assist Device Used No (0 pt) Altered Elimination No (0 pt) Score/Fall Risk Level 0 - 2 = Low Risk Oriented to surroundings, Maintained a safe environment, Educated pt \T\ family on fall prevention, incl call for assistance when getting out of bed. Abuse screen: Denies threats or abuse. Nutritional screening: No deficits noted. Tuberculosis screening: No symptoms or risk factors identified. Assessment: 14:13 Reassessment: FHR 154. General: Appears in no apparent distress. Behavior is calm, mb9 appropriate for age. Pain: Complains of pain in abdomen. Neuro: [place] Agitation-Sedation Scale (RASS): 0 - Alert and Calm Level of Consciousness is awake, alert, obeys commands, Oriented to person, place, time, situation, Appropriate for age. Cardiovascular: Patient's skin is warm and dry. Respiratory: Airway is patent. : Reports vaginal bleeding that is. Derm: Skin is pink, warm \T\ dry. Musculoskeletal: Range of motion: intact in all extremities. Vital Signs: 13:45 BP 121 / 81; Pulse 98; Resp 16; Temp 99.1; Pulse Ox 97% on R/A; Weight 76.2 kg; Height iw 5 ft. 2 in. ; Pain 6/10; 13:45 Body Mass Index 30.73 (76.20 kg, 157.48 cm) iw 13:45 Pain Scale: Adult iw ED Course: 13:40 Patient arrived in ED. mr 13:46 Triage completed. iw 13:46 Arm band placed on. iw 13:48 Raul Carias MD is Attending Physician. bs3 14:13 Madison Canales, JASIEL is Primary Nurse. mb9 14:15 No provider procedures requiring assistance completed. Patient did not have IV access mb9 during this emergency room visit. Administered Medications: No medications were administered Medication: 14:14 VIS not applicable for this client. mb9 Outcome: 14:01 Discharge ordered by . bs3 14:15 Discharged to home ambulatory. mb9 14:15 Condition: stable 14:15 Discharge instructions given to patient, Instructed on discharge instructions, follow up and referral plans. Demonstrated understanding of instructions, follow-up care. 14:15 Patient left the ED. mb9 Signatures: Madison Nugent Irene, RN RN iw Raul Carias MD MD bs3 Madison Canales RN RN mb9
--- NOTE | 2022-11-02 14:01 | EDPHYS ---
Physician Documentation [facility] Name: Lanny Salgado Age: 27 yrs Sex: Female : 1995 Arrival Date: 11/02/2022 Time: 13:37 Bed 11 Private MD: ED Physician Raul Carias HPI: 11/02 13:57 This 27 yrs old Female presents to ER via Ambulatory with complaints of 29 bs3 wks , Vaginal Bleeding, Abdominal Cramping. 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 - Social history:: Smoking status: . ROS: 13:57 Constitutional: Negative for fever, chills bs3 13:57 All other systems are negative. Exam: 13:57 Constitutional: This is a well developed, well nourished patient who is awake, alert, bs3 and in no acute distress. Head/Face: Normocephalic, atraumatic. Eyes: Pupils equal round and reactive to light, extra-ocular motions intact. Lids and lashes normal. Abdomen/GI: Patient is gravid MS/ Extremity: Pulses equal, no cyanosis. Neurovascular intact. Full, normal range of motion. Neuro: Awake and alert, GCS 15, oriented to person, place, time, and situation. Cranial nerves II-XII grossly intact. Motor strength 5/5 in all extremities. Sensory grossly intact. Psych: Awake, alert, with orientation to person, place and time. Behavior, mood, and affect are within normal limits. Vital Signs: 13:45 BP 121 / 81; Pulse 98; Resp 16; Temp 99.1; Pulse Ox 97% on R/A; Weight 76.2 kg; Height iw 5 ft. 2 in. ; Pain 6/10; 13:45 Body Mass Index 30.73 (76.20 kg, 157.48 cm) iw 13:45 Pain Scale: Adult iw MDM: 13:48 Patient medically screened. bs3 13:57 Data reviewed: vital signs, nurses notes. ED course: Possible [place] bs3 contractions versus early labor, heart tones performed, advised transfer to [facility], pt wanted to drive there, she is stable for discharge and to drive there. Administered Medications: No medications were administered Disposition Summary: 11/02/22 14:01 Discharge Ordered Location: Home bs3 Problem: new bs3 Symptoms: are unchanged bs3 Condition: Stable bs3 Diagnosis - related conditions, unspecified, third trimester bs3 Followup: bs3 - With: Private Physician - When: Upon discharge from the Emergency Department - Reason: Re-evaluation by your physician Discharge Instructions: - Discharge Summary Sheet bs3 - Abdominal Pain During , [id number] bs3 Forms: - Medication Reconciliation Form bs3 - Thank You Letter bs3 - Antibiotic Education bs3 - Prescription Opioid Use bs3 Signatures: Komal Patel, RN RN iw Raul Carias MD MD bs3
[2022-11-02 14:47] VITALS: BP 121/81; TEMP 99.1; O2SAT 97
== END 2022-11-02 14:15 | disposition home or self-care (01) ==
LOC: ER 13:37
DX: O26.853 Spotting complicating pregnancy, third trimester (principal); Z3A.29 29 weeks gestation of pregnancy